=== PATIENT | female | born 1960 | race Caucasian/White ===

== ENCOUNTER 2022-02-08 07:10 | Emergency (ER) | payer MEDICARE, OTHER ==
[~2022-02-08] VITALS: Ht 167.6 cm; Wt 161.0 kg
[~2022-02-08 07:10] MED LIST: NAPR-1025 PO
[2022-02-08] MEDS ORDERED: CARV3 PO (07:20)
[2022-02-08] MEDS ORDERED: ATOR10TA84 PO (07:20)
[2022-02-08] MEDS ORDERED: SACU1TAB PO (07:20)
[2022-02-08] MEDS ORDERED: ASPI81TA39 PO (07:20)
[2022-02-08] MEDS ORDERED: PANT-31 PO (07:20)
[2022-02-08] MEDS ORDERED: SPIR-37 PO (07:20)
[2022-02-08] MEDS ORDERED: DOXE25CA66 PO (07:20)
[2022-02-08] MEDS ORDERED: FURO20 PO (07:20)
[2022-02-08] MEDS ORDERED: FERR325T27 PO (07:20)
[2022-02-08] MEDS ORDERED: GABA-1181 PO (07:20)
[2022-02-08 08:10] VITALS: BP 124/56
[2022-02-08] MEDS ORDERED: IBUPROFEN 600 MG TABLET PO ONE (08:45)
[2022-02-08] MEDS ORDERED: PENI500T2 PO (09:08)
== END 2022-02-08 09:22 | disposition home or self-care (01) ==
LOC: EMS 07:11
DX: K04.7 Periapical abscess without sinus (principal); K02.9 Dental caries, unspecified; I50.9 Heart failure, unspecified; I25.10 Atherosclerotic heart disease of native coronary artery without angina pectoris; F41.9 Anxiety disorder, unspecified; I25.2 Old myocardial infarction; F17.210 Nicotine dependence, cigarettes, uncomplicated; Z79.899 Other long term (current) drug therapy; Z79.82 Long term (current) use of aspirin; Z88.5 Allergy status to narcotic agent
CPT/HCPCS: 99283